=== PATIENT | female | born 1955 | race Caucasian/White ===

== ENCOUNTER 2019-09-25 13:01 | Outpatient (CLI) | payer MEDICARE, SELFPAY ==
--- NOTE | ~2019-09-25 | MR_ITS ---
EXAMINATION: MR lumbar spine wo con DATE: 09/25/2019 14:01 INDICATION: Chronic low back pain. Left leg weakness. TECHNIQUE: Magnetic resonance imaging (MRI) of the lumbar spine was performed without intravenous con trast. Sequences included sagittal T2-weighted FSE, sagittal T2-weighted FS FSE, sagittal T1-weighted FSE, and axial T2-weighted FSE. COMPARISON: Lumbar spine radiographs 03/05/2019 FINDINGS: There is 6 degrees dextrocurvature of thoracolumbar spine. There is 3 mm retrolisthesis of L1 on L2 and L2 on L3. There are Schmorl's nodes from L1-L2 through L3-L4. There is moderately decrea sed disc height from L1-L2 through L3-L4, mildly decreased disc height at L4-L5, and moderately decre ased disc height at L5-S1. The distal spinal cord signal intensity is normal. The conus medullaris is at L1. The following disc levels are specifically discussed: L1-L2: The disc is bulging and has an annular fissure. There is mild right facet joint osteoarthritis . There is mild bilateral neural foraminal stenosis. There is mild central canal stenosis. L2-L3: The disc is bulging. There is mild bilateral facet joint osteoarthritis. There is mild bilater al neural foraminal stenosis. There is mild central canal stenosis. L3-L4: The disc is bulging and has an annular fissure. There is mild bilateral facet joint osteoarthr itis. There is mild bilateral neural foraminal stenosis. There is mild central canal stenosis. L4-L5: The disc is bulging and has an annular fissure. There is mild bilateral facet joint osteoarthr itis. There is mild bilateral neural foraminal stenosis. There is mild central canal stenosis. L5-S1: The disc is bulging with superimposed left subarticular extrusion. No nerve root compression. There is severe bilateral facet joint osteoarthritis. There is mild bilateral neural foraminal stenos is. There is mild central canal stenosis. IMPRESSION: 1. Moderate lumbar spondylosis. Reviewed, dictated and finalized at location A.
== END 2019-09-25 13:02 ==
PROVIDERS: Visit Provider Nurse Practitioner Family
DX: M54.5 Low back pain (principal); M47.816 Spondylosis without myelopathy or radiculopathy, lumbar region
CPT/HCPCS: 72148

== ENCOUNTER → 2020-10-30 15:20 | Outpatient (CLI) | payer MEDICARE, SELFPAY ==
--- NOTE | ~2020-10-30 | MR_ITS ---
EXAMINATION: MR lumbar spine wo con DATE: 10/30/2020 16:08 INDICATION: Lumbar radiculopathy TECHNIQUE: Magnetic resonance imaging (MRI) of the lumbar spine was performed without intravenous con trast. Sequences included sagittal T2-weighted FSE, sagittal T2-weighted FS FSE, sagittal T1-weighted FSE, and axial T2-weighted FSE. COMPARISON: 09/25/2019 FINDINGS: No interval change in 6 degrees thoracolumbar dextrocurvature. Also unchanged is 3 mm retrolisthesis L1 on L2 and L2 on L3. Vertebral body heights are normal. Schmorl's nodes along the inferior endplate s of L1-L3.T1 hyperintense hemangiomas at T11, L1 and L2. Moderate disc height loss at L1-L2 through L3-L4. Moderate disc height loss at L5-S1 and mild disc height loss at L4-L5. The conus medullaris te rminates at L1. There is normal signal in the caudal spinal cord. Paravertebral soft tissues are unre markable. The following disc levels are specifically discussed: T12-L1: Disc is minimally bulging. There is mild bilateral facet joint osteoarthritis. There is no ne ural foraminal stenosis. There is no central canal stenosis. L1-L2: Disc is bulging with annular fissure. There is mild bilateral facet joint osteoarthritis. Ther e is mild bilateral, left greater than right neural foraminal stenosis. There is mild central canal s tenosis. L2-L3: Disc is bulging. There is mild bilateral facet joint osteoarthritis. There is mild bilateral n eural foraminal stenosis. There is mild central canal stenosis. L3-L4: Disc is bulging with annular fissure. There is mild bilateral facet joint osteoarthritis. Ther e is mild to moderate bilateral neural foraminal stenosis. There is mild central canal stenosis. L4-L5: Disc is mildly bulging with annular fissure. There is mild bilateral facet joint osteoarthriti s. There is mild bilateral neural foraminal stenosis. There is mild central canal stenosis. L5-S1: Disc is bulging with annular fissure and unchanged left subarticular zone disc extrusion. Ther e is severe bilateral facet joint osteoarthritis. There is mild right and mild to moderate left neura l foraminal stenosis. There is mild central canal stenosis. IMPRESSION: 1. No significant interval change in moderate lumbar spondylosis. Reviewed, dictated and finalized at location B.
== END ==
PROVIDERS: Visit Provider Nurse Practitioner Family
DX: M54.16 Radiculopathy, lumbar region (principal); M47.816 Spondylosis without myelopathy or radiculopathy, lumbar region
CPT/HCPCS: 72148

== ENCOUNTER 2022-05-04 14:24 | Outpatient (CLI) | payer MEDICARE, SELFPAY ==
--- NOTE | ~2022-05-04 | MR_ITS ---
EXAMINATION: MR lumbar spine wo con DATE: 05/04/2022 15:02 INDICATION: Low back pain. Scoliosis without myelopathy or radiculopathy. TECHNIQUE: Magnetic resonance imaging (MRI) of the lumbar spine was performed without intravenous con trast. Sequences included sagittal T2-weighted FSE, sagittal T2-weighted FS FSE, sagittal T1-weighted FSE, and axial T2-weighted FSE. COMPARISON: Lumbar spine MRI 10/30/2020 FINDINGS: There is 5 degrees dextrocurvature of thoracolumbar spine. There is 3 mm retrolisthesis of L1 on L2 and L2 on L3. There is mild chronic anterior wedging of L1 vertebral body. There is severely decreased disc height at L1-L2, moderately decreased disc height at L2-L3 and L3-L4, and mildly decr eased disc height at L4-L5 and L5-S1. The distal spinal cord signal intensity is normal. The conus me dullaris is at L1. The following disc levels are specifically discussed: L1-L2: The disc is bulging. There is mild bilateral facet joint osteoarthritis. There is mild left ne ural foraminal stenosis. There is mild central canal stenosis. L2-L3: The disc is bulging. There is mild bilateral facet joint osteoarthritis. There is mild bilater al neural foraminal stenosis. There is mild central canal stenosis. L3-L4: The disc is bulging. There is mild bilateral facet joint osteoarthritis. There is mild bilater al neural foraminal stenosis. There is mild central canal stenosis. L4-L5: The disc is bulging and has an annular fissure. There is severe right and mild left facet join t osteoarthritis. There is mild bilateral neural foraminal stenosis. There is mild central canal sten osis. L5-S1: There is a left subarticular zone protrusion. There is moderate bilateral facet joint osteoart hritis. There is mild bilateral neural foraminal stenosis. There is mild central canal stenosis. IMPRESSION: 1. Moderate lumbar spondylosis, stable from 10/30/2020. Reviewed, dictated and finalized at location A. [employer]
--- NOTE | ~2022-05-04 | XR_ITS ---
EXAM: XR lumbar spine min 4V DATE: 05/04/2022 15:11 HISTORY: Spondylosis without myelopathy or radiculopathy, l . COMPARISON: 03/05/2019. FINDINGS: Suture lines in the left upper quadrant. Moderate lumbar scoliosis. Osteopenia. Exaggerated lumbar lordosis. 5 nonrib-bearing lumbar-type vertebral bodies. Pedicles intact. Stable mild grade 1 retrolisthesis at L2-3 and L3-4. Vertebral body heights preserved. Multilevel moderate disc space na rrowing and marginal osteophytosis. Vacuum phenomenon at L2-3. Multilevel facet hypertrophy and scler osis. No fracture or dislocation. Mild aortic calcification without evident aneurysm. IMPRESSION: Stable grade 1 retrolistheses at L2-3 and L3-4. Stable moderate multilevel degenerative d isc disease and facet arthropathy. Reviewed, dictated and finalized at location K. L GRINDER IMPRESSION: Stable grade 1 retrolistheses at L2-3 and L3-4. Stable moderate mul tilevel degenerative disc disease and facet arthropathy.
== END 2022-05-04 14:25 ==
PROVIDERS: PCP Neurological Surgery; Visit Provider Neurological Surgery
DX: M47.816 Spondylosis without myelopathy or radiculopathy, lumbar region (principal); M51.36 Other intervertebral disc degeneration, lumbar region
CPT/HCPCS: 72110; 72148

== ENCOUNTER 2022-09-30 09:34 | Observation (INO) | payer MEDICARE, SELFPAY ==
[2022-09-30] VITALS (21 sets, daily range): BP systolic 149–172; BP diastolic 59–82; PULSE 54–78; RESP 13–21; TEMP 35.9–36.8; O2SAT 93–100; BMI 34.0
--- NOTE | 2022-09-30 09:42 | ED.GENADULT ---
HPI - General Adult General Chief complaint: Recheck/Abnormal Lab/Rx Stated complaint: drEduard sent for possible blood transfusion Time Seen by Provider: 09/30/22 09:42 Source: patient and family Mode of arrival: ambulatory Limitations: no limitations History of Present Illness HPI narrative: 66 years old white female history of systemic lupus,, fibromyalgia, rheumatoid arthritis been on meloxicam 7.5 mg twice a day for years. Complaining of general weakness, fatigue, shortness of breath for the last 5 months. Patient was seen by her family physician 3 weeks ago who ordered blood work-up to be done 2 days ago, had a phone call today to go to the emergency room because her hemoglobin is 6.8. Patient denies abdominal pain, vomiting or diarrhea or change in coloration of the stool. Related Data Home Medications Medication Instructions Recorded Confirmed hydrocodone 7.5 mg-acetaminophen 1 tablet PO Q6H PRN 05/18/19 08/24/22 325 mg tablet morphine 30 mg tablet,extended 30 mg PO Q12H 06/19/19 08/24/22 release folic acid 400 mcg tablet 0.4 mg PO DAILY 12/24/20 08/24/22 vitamin B complex (B 1 tablet PO DAILY 12/24/20 08/24/22 Complex-Vitamin B12 tablet) zinc 50 mg tablet 50 mg PO DAILY 12/24/20 08/24/22 pantoprazole 40 mg tablet,delayed 40 mg PO BID 08/24/22 08/24/22 release Allergies Allergy/AdvReac Type Severity Reaction Status Date / Time adhesive tape Allergy Unknown powell to Verified 09/30/22 10:18 skin Penicillins Allergy Unknown Swelling Verified 09/30/22 10:18 of Lip/Tongue/Throat Review of Systems Review of Systems: All systems reviewed & are unremarkable except as noted in HPI and below PMFSH Past Medical History Medical History (Updated 09/30/22 @ 12:32 by Edna Burns MD) Abdominal migraine Anemia Essential (primary) hypertension Fibromyalgia Pure hypercholesterolemia Rheumatoid arthritis with positive rheumatoid factor Screening for breast cancer Systemic lupus erythematosus, unspecified Vitamin D deficiency, unspecified Surgical History Surgical History (Updated 09/30/22 @ 12:32 by Rosita Gutierrez NP) H/O section H/O colonoscopy H/O gastric bypass Hx of cholecystectomy Family History Family History Mother Family history of chronic obstructive pulmonary disease Family history of diabetes mellitus in first degree relative Diabetes mellitus Social History Social History Smoking packs per day: 2 Smoking cigarettes per day: 40.0 Years smoked: 30 Smoking pack-years: 60.00 Smoking status: Former smoker Tobacco type: e-cigarettes/vaping Second hand tobacco smoke exposure: No Smoking end date: 03/07/09 Alcohol intake: never Substance use: never Substance use type: does not use Lack of Transportation: No Lack of Food: Never True Current Housing: I Have Housing Concerned About Future Housing: No Difficulty Paying Gas/Electric Bills: No Difficulty Paying for Meds: No Currently Unemployed: No Education: Trade/Vocational Certificate Difficulty w/ Childcare or Family Care: No Exam Narrative: General appearance: Well-developed, well-nourished Skin: Pale Head: Normocephalic, nontraumatic Eyes: Clear conjunctiva ENT: Oropharynx normal, ears normal, nose normal Neck: Supple, nontender Chest and respiratory: Airway patent, no respiratory distress, no accessory muscle use Heart: Regular rate/rhythm Abdomen: Soft, nontender, no organomegaly, quiet bowel sounds, rectal exam showed yellow stool, guaiac negative Vascular: Normal peripheral pulses, normal capillary refill. Musculoskeletal: Normal range of motion, nontender back Neurologic: Alert and oriented ?3, [employer] is normal as tested, no gross motor deficit
[2022-09-30 10:14] LABS: Basophils Absolute Auto 0.1 K/mm3 (0.0-0.1); Basophils Percent Auto 1.4 % (0.2-1.2); Eosinophils Absolute Auto 0.2 K/mm3 (0-0.3); Eosinophils Percent Auto 6.4 % (0-4.4); Hematocrit 25.6 % (37.0-47.0); Hemoglobin 7.3 g/dL (12.0-15.0); Immature Granulocyte Absolute 0.01 K/mm3 (0.00-0.031); Immature Granulocyte Percent A 0.3 % (0-0.5); Lymphocytes Absolute Auto 0.56 K/mm3 (0.9-3.2); Lymphocytes Percent Auto 15.6 % (18.3-44.2); Mean Corpuscular HGB Conc 28.5 g/dl (32-36); Mean Corpuscular Hemoglobin 18.5 pg (26-34); Mean Corpuscular Volume 64.8 fl (80-100); Mean Platelet Volume 9.2 fl (7.4-10.4); Monocytes Absolute Auto 0.4 K/mm3 (0.1-0.6); Neutrophils Absolute Auto 2.3 K/mm3 (1.3-6.7); Neutrophils Percent Auto 64.3 % (45.5-73.1); Platelet Count Result 337 k/mm3 (150-375); Red Blood Count 3.95 M/mm3 (4.2-5.4); White Blood Count 3.6 K/mm3 (4.5-10.0)
[2022-09-30 10:24] LABS: Alanine Aminotransferase 16 U/L (6-35); Albumin Level 3.9 g/dL (3.5-5.1); Alkaline Phosphatase 59 U/L (38-126); Anion Gap 9 mmol/L (8-16); Aspartate Amino Transferase 35 U/L (14-36); Bilirubin,Total 0.3 mg/dL (0.2-1.3); Blood Urea Nitrogen 6 mg/dL (7-17); Calcium 8.4 mg/dL (8.4-10.2); Carbon Dioxide 25 mmol/L (22-30); Chloride 95 mmol/L (98-107); Estimated CRCL calculation 65 ml/min; Estimated Glomerular Filt Rate > 60; Glucose 97 mg/dL (65-110); Sodium 129 mmol/L (137-145)
[2022-09-30 10:26] LABS: Prothrombin Time 13.4 Seconds (11.1-14.7)
[2022-09-30] MEDS: PANTOPRAZOLE SODIUM IV 40 MG VIAL IV PUSH ×2 (10:26→16:30)
[2022-09-30 10:27] LABS: Partial Thromboplastin Time 29.4 SECONDS (22.3-36.8)
[2022-09-30 10:33] LABS: Anisocytosis 2+ (NORMAL); Hypochromasia 2+ (NORMAL); Microcytosis 2+ (NORMAL); Ovalocytes 1+ (NORMAL); Platelet Estimate Adequate (Adequate)
[2022-09-30 10:34] LABS: Schistocytes None Seen (NORMAL)
--- NOTE | 2022-09-30 12:00 | PC.NURSE ---
Per Dr. Burns, patient to not receive blood products at this time d/t hemoglobin improving since drawn 2 day ago. CEDRIC Manrique and [facility] Isela, blood bank, made aware.
--- NOTE | 2022-09-30 12:28 | PM.IMHP ---
H&P: HPI History of Present Illness Date/Time: 09/30/22 12:28 Chief Complaint: Abnormal lab Narrative: This is a 66-year-old female patient who has a history of systemic lupus, rheumatoid arthritis and fibromyalgia. The patient has been short of breath with exertion and fatigue. She has a history of gastric bypass and has had her B12 checked in the past and was found that it was high. The patient stated that her iron levels were low old she stated that they were down to 5% at 1 time. She has also been having some dysphagia where she is having difficulty swallowing and feels that things are getting stuck in her throat. The patient also has been complaining of burning tongue and throat. She was started on what sounds like nystatin and was not able to tolerated. She has been taking meloxicam and hydro chloroquine for her RA and and her lupus. She stated that back in 2018 her blood counts were normal. The patient was seen by her primary care doctor approximately 3 weeks ago and lab work was ordered 2 days ago. The patient had a phone call today to tell her to come to the emergency room because her hemoglobin was 6.8. The patient denies any hematemesis or hematochezia. The patient stated that she has not been able to take her vitamins because of her burning tongue and throat. She has difficulty swallowing. On 09/28/2022 her H&H was 6.824.3. Her H&H is now 7.3 and 25.6. Which is comparable to her labs on 09/16/2022. Her sodium is low 129. Chloride 95. Her vitamin B12 was 1730 on 09/28/2022 her vitamin-D was low at 29.6 on 09/16/2022 her iron level was 15 2 days ago saturation is 3. TIBC is 454 unsaturated IBC is 439. Ferritin is 5. And iron infusion has been ordered for the patient. GI has been consulted. The patient stated that she has had a full anemia panel workup in the past. She denies any chest pain. The patient is being admitted to observation status on 09/30/2022. Review of Systems Review of Systems: All systems reviewed & are unremarkable except as noted in HPI and below Constitutional: Constitutional: Reports as per HPI and Reports no additional constitutional complaints Eyes: Eyes: Reports as per HPI and Reports no additional eye complaints ENT: Reports system reviewed and no additional complaints, except as documented and Reports Normal hearing present Cardiovascular: Cardiovascular: Reports no additional cardiovascular complaints Respiratory: Respiratory: Reports no additional respiratory complaints and Reports no additional respiratory complaints Gastrointestinal: Gastrointestinal: Reports as per HPI and Reports no additional gastrointestinal complaints Musculoskeletal: Musculoskeletal: Reports no additional musculoskeletal complaints Integumentary/Breasts: Skin/Breast: Reports system reviewed and no additional complaints, except as docu and Reports as per HPI Neurologic: Reports system reviewed and no additional complaints, except as documented, Reports as per HPI and Reports Normal hearing present Psychiatric: Psychiatric: Reports no additional psychiatric complaints and Reports as per HPI Endocrine: Endocrine: Reports no additional endocrine complaints Hematologic/Lymphatic: Hematologic/Lymphatic: Reports no additional hematologic/lymphatic complaints Allergic/Immunologic: Allergic/Immunologic: Reports no additional allergic/immunologic complaints [facility] Past Medical History Medical History (Updated 09/30/22 @ 15:43 by Rosita Gutierrez NP) Abdominal migraine Anemia Chronic prescription opiate use CVA (cerebral vascular accident) Essential (primary) hypertension Fibromyalgia History of endometriosis Iron deficiency anemia Pure hypercholesterolemia Rheumatoid arthritis with positive rheumatoid factor Screening for breast cancer Systemic lupus erythematosus, unspecified Vitamin D deficiency, unspecified Surgical History Surgical History (Updated 09/30/22 @ 15:33 by Rosita Gutierrez NP) H/O ce
--- NOTE | 2022-09-30 13:15 | ADMGEN ---
This patient, Krissy Oro, was admitted to [facility] Surg Room 331-01. Patient/family oriented to hospital policies and general routines including ID bracelet, bed and alarms, visiting hours, pain management, procedures, bathroom and other care routines, personal items, smoking policy, room service/diet, and visiting hours. Information on how to activate the Rapid Response Team has been discussed. Patient/Family are encouraged to report perceived risks to care and to ask questions if they do not understand what they are told or what they should do.
--- NOTE | 2022-09-30 15:25 | PC.NURSE ---
Addendum entered by Soraida Romero RN 09/30/22 17:50: Iron infusion finished. Pt tolerated well. Pt denies pain and expresses no needs at this time. Will continue to monitor pt. Original Note: Pt has Iron infusion ordered at 1236 while down in ED. Pt did not receive infusion before being sent up. Will infuse when pharmacy sends up.
[2022-09-30] MEDS: IRON SUCROSE COMPLEX 200 MG in SODIUM CHLORIDE 0.9% IV 50 ML 120 MG IVPB (16:27)
[2022-09-30] MEDS: HYDROXYCHLOROQUINE SULFATE 200 MG TABLET PO (16:28)
[2022-09-30] MEDS: GABAPENTIN 300 MG CAPSULE 600 MG PO (16:28)
[2022-09-30] MEDS: atenoloL 50 MG TABLET PO (16:28)
[2022-09-30 18:16] LABS: Hematocrit 23.6 % (37.0-47.0)
[2022-09-30 18:24] LABS: Hemoglobin 6.8 g/dL (12.0-15.0)
[2022-09-30 18:26] LABS: Anion Gap 5 mmol/L (8-16); Blood Urea Nitrogen 6 mg/dL (7-17); Calcium 8.3 mg/dL (8.4-10.2); Carbon Dioxide 27 mmol/L (22-30); Chloride 95 mmol/L (98-107); Estimated CRCL calculation 74 ml/min; Estimated Glomerular Filt Rate > 60; Glucose 126 mg/dL (65-110); Sodium 127 mmol/L (137-145)
--- NOTE | 2022-09-30 19:19 | PC.NURSE ---
Pt hgb came back at 6.8. Provider notified, 1 unit of PRBC ordered for pt. Consent was signed. Pt vitals taken. Attempted to get new IV due to IV that was placed in ED is in L AC and keeps alarming while infusing. No new IV obtained at this time. Pt tolerating well. Will stay with pt for first 15 minutes and repeat vitals. Bowel prep will be started when miralax is sent to the floor. Will continue to monitor pt. Oncoming nurse cosigned blood administration.
[2022-09-30] MEDS: SODIUM CHLORIDE 0.9% IV 250 ML 30 ML IV CONT (19:27)
[2022-09-30] MEDS: polyethylene glycoL 3350 238 GM BOTTLE PO (19:35)
[2022-09-30] MEDS: BISACODYL 5 MG TABLET EC 20 MG PO (19:36)
[2022-09-30] MEDS: MORPHINE SULFATE (*CRX) 30 MG TABCR PO (20:25)
--- NOTE | 2022-09-30 22:35 | PC.NURSE ---
Patient c/o feeling light headed and having a hot flash. Glucose level checked at this time with the results of 62. Notified Rosita Gutierrez. New orders received for one time amp of D50 and redraw H&H at 2255.
[2022-09-30] MEDS: DEXTROSE 50% 25 GM/50 ML SYRINGE IV PUSH (22:39)
[2022-09-30 22:42] LABS: Glucose Point of Care 62 mg/dl (65-105)
[2022-09-30 23:11] LABS: Glucose Point of Care 212 mg/dl (65-105)
[2022-09-30 23:51] LABS: Hematocrit 24.5 % (37.0-47.0); Hemoglobin 7.4 g/dL (12.0-15.0)
[2022-10-01] VITALS (7 sets, daily range): BP systolic 115–157; BP diastolic 46–97; PULSE 60–82; RESP 14–20; TEMP 35.9–36.4; O2SAT 98–100
[2022-10-01 02:17] LABS: Anion Gap 10 mmol/L (8-16); Blood Urea Nitrogen 5 mg/dL (7-17); Calcium 7.9 mg/dL (8.4-10.2); Carbon Dioxide 21 mmol/L (22-30); Chloride 93 mmol/L (98-107); Estimated CRCL calculation 74 ml/min; Estimated Glomerular Filt Rate > 60; Glucose 144 mg/dL (65-110); Potassium 3.1 mmol/L (3.4-5.0); Sodium 124 mmol/L (137-145)
[2022-10-01] MEDS: HYDROcodone/acetaminophen (*CRX) 7.5-325 MG TABLET 1 TAB PO ×2 (04:33→15:30)
[2022-10-01 06:42] LABS: Basophils Percent Auto 0.7 % (0.2-1.2); Eosinophils Absolute Auto 0.2 K/mm3 (0-0.3); Eosinophils Percent Auto 4.4 % (0-4.4); Hematocrit 25.8 % (37.0-47.0); Hemoglobin 7.4 g/dL (12.0-15.0); Lymphocytes Absolute Auto 0.66 K/mm3 (0.9-3.2); Lymphocytes Percent Auto 15.4 % (18.3-44.2); Mean Corpuscular HGB Conc 28.7 g/dl (32-36); Mean Corpuscular Hemoglobin 19.4 pg (26-34); Mean Corpuscular Volume 67.7 fl (80-100); Mean Platelet Volume 9.4 fl (7.4-10.4); Monocytes Absolute Auto 0.6 K/mm3 (0.1-0.6); Neutrophils Absolute Auto 2.8 K/mm3 (1.3-6.7); Neutrophils Percent Auto 65.5 % (45.5-73.1); Platelet Count Result 265 k/mm3 (150-375); Red Blood Count 3.81 M/mm3 (4.2-5.4); Red Cell Distribution Width 21.2 % (11.5-14.5); White Blood Count 4.3 K/mm3 (4.5-10.0)
[2022-10-01 06:56] LABS: Alanine Aminotransferase 17 U/L (6-35); Albumin Level 3.4 g/dL (3.5-5.1); Alkaline Phosphatase 56 U/L (38-126); Anion Gap 6 mmol/L (8-16); Aspartate Amino Transferase 31 U/L (14-36); Bilirubin,Total 0.5 mg/dL (0.2-1.3); Blood Urea Nitrogen 5 mg/dL (7-17); Calcium 8.2 mg/dL (8.4-10.2); Carbon Dioxide 24 mmol/L (22-30); Chloride 96 mmol/L (98-107); Estimated CRCL calculation 74 ml/min; Estimated Glomerular Filt Rate > 60; Glucose 92 mg/dL (65-110); Magnesium 1.7 mg/dL (1.6-2.3); Potassium 4.2 mmol/L (3.4-5.0); Sodium 126 mmol/L (137-145)
[2022-10-01 07:43] LABS: Platelet Estimate Adequate (Adequate)
[2022-10-01 07:44] LABS: Anisocytosis 2+ (NORMAL); Hypochromasia 1+ (NORMAL); Microcytosis 1+ (NORMAL); Ovalocytes 1+ (NORMAL); Schistocytes None Seen (NORMAL)
[2022-10-01] MEDS: MORPHINE SULFATE (*CRX) 30 MG TABCR PO (09:24)
[2022-10-01] MEDS: GABAPENTIN 300 MG CAPSULE 600 MG PO (09:24)
[2022-10-01] MEDS: HYDROXYCHLOROQUINE SULFATE 200 MG TABLET PO (09:24)
[2022-10-01] MEDS: atenoloL 50 MG TABLET PO (09:24)
[2022-10-01] MEDS: LACTATED RINGERS 1,000 ML 150 ML IV CONT (10:41)
--- NOTE | 2022-10-01 11:05 | WPDANESEPPF ---
Anes - Initial Pre Proc Eval Procedure: Operation Date: 10/01/22 12:30 Proposed Procedures p Esophagogastroduodenoscopy & Colonoscopy - Jamir Graham MD Date/Time: 10/01/22 11:05 Surgeon: Luis Eduardo Sierra MD Pre Op Diagnosis: Anemia Patient Data Age: 66 Gender: F Height: 1.7 m Weight: 98.4 kg Last Vital Signs Temp 97.4 F L 10/01/22 10:38 Pulse 82 10/01/22 10:38 Resp 20 10/01/22 10:38 BP 149/97 H 10/01/22 10:38 Pulse Ox 98 10/01/22 10:38 O2 Del Method Room Air 10/01/22 10:38 Allergies Allergy/AdvReac Type Severity Reaction Status Date / Time adhesive tape Allergy Unknown powell to Verified 10/01/22 10:35 skin Penicillins Allergy Unknown Swelling Verified 10/01/22 10:35 of Lip/Tongue/Throat Home Medications Medication Instructions Recorded Confirmed Type hydrocodone 7.5 mg-acetaminophen 1 tablet PO BID PRN Pain, Severe 05/18/19 09/30/22 History 325 mg tablet morphine 30 mg tablet,extended 30 mg PO Q12H 06/19/19 09/30/22 History release gabapentin 600 mg tablet 600 mg PO BID #180 tabs 07/30/22 09/30/22 Rx pantoprazole 40 mg tablet,delayed 40 mg PO BID 08/24/22 09/30/22 History release atenolol 50 mg tablet 50 mg PO BID 09/30/22 09/30/22 History cyclobenzaprine 10 mg tablet 10 mg PO HS PRN Muscle Spasm 09/30/22 09/30/22 History hydroxychloroquine 200 mg tablet 200 mg PO BID 09/30/22 09/30/22 History meloxicam 7.5 mg tablet 7.5 mg PO BID PRN Pain, Mild 09/30/22 09/30/22 History Laboratory Tests 09/30/22 09/30/22 09/30/22 10:07 18:05 22:32 WBC RBC Hgb 6.8 L* g/dL (12.0-15.0) Hct 23.6 L % (37.0-47.0) MCV MCH MCHC RDW Plt Count MPV Immature Gran % (Auto) Neut % (Auto) Lymph % (Auto) [place] % (Auto) Eos % (Auto) Baso % (Auto) Lymph # (Auto) [place] # (Auto) Eos # (Auto) Baso # (Auto) Abs Immat Gran (auto) Absolute Neuts (auto) Absolute Nucleated RBC Nucleated RBC % Platelet Estimate Hypochromasia Anisocytosis Microcytosis Ovalocytes Schistocytes Sodium 127 L mmol/L (137-145) Potassium 5.0 mmol/L (3.4-5.0) Chloride 95 L mmol/L (98-107) Carbon Dioxide 27 mmol/L (22-30) Anion Gap 5 L mmol/L (8-16) BUN 6 L mg/dL (7-17) Creatinine 0.80 mg/dL (0.7-1.0) Estim Creat Clear Calc 74 ml/min Estimated GFR > 60 (59 - ) Glucose 126 H mg/dL (65-110) POC Capillary Glucose 62 L mg/dl (65-105) Calcium 8.3 L mg/dL (8.4-10.2) Magnesium Total Bilirubin AST ALT Alkaline Phosphatase Total Protein Albumin TSH (Reflex) Blood Type O Positive Antibody Screen Negative Crossmatch See Detail 09/30/22 09/30/22 09/30/22 23:08 23:18 23:26 WBC RBC Hgb 7.4 L g/dL (12.0-15.0) Hct 24.5 L % (37.0-47.0) MCV MCH MCHC RDW Plt Count MPV Immature Gran % (Auto) Neut % (Auto) Lymph % (Auto) [place] % (Auto) Eos % (Auto) Baso % (Auto) Lymph # (Auto) [place] # (Auto) Eos # (Auto) Baso # (Auto) Abs Immat Gran (auto) Absolute Neuts (auto) Absolute Nucleated RBC Nucleated RBC % Platelet Estimate Hypochromasia Anisocytosis
--- NOTE | 2022-10-01 11:21 | WPDGICN ---
Assessment and Plan Assessment and plan (1) Iron deficiency anemia: Code(s): D50.9 - Iron deficiency anemia, unspecified Status: Acute Assessment and Plan: will proceed with egd and colonoscopy today assess if gi blood loss, denies overt gib she is taking nsaid's, recently with dysphagia, also h/o SLE also could be from previous gastric surgery (2) Dysphagia: Code(s): R13.10 - Dysphagia, unspecified Status: Acute Assessment and Plan: egd to assess if stricture, esophagitis, etc she is using ppi daily (3) Hyponatremia: Code(s): E87.1 - Hypo-osmolality and hyponatremia Status: Acute Assessment and Plan: monitor (4) Systemic lupus erythematosus, unspecified: Qualifiers: Systemic lupus erythematosus type: unspecified Systemic lupus erythematosus organ involvement: unspecified Qualified Code(s): M32.9 - Systemic lupus erythematosus, unspecified Code(s): M32.9 - Systemic lupus erythematosus, unspecified Status: Acute Assessment and Plan: on plaquenil (5) Fibromyalgia: Code(s): M79.7 - Fibromyalgia Status: Acute (6) Chronic pain disorder: Code(s): G89.4 - Chronic pain syndrome Status: Acute (7) NSAID long-term use: Code(s): Z79.1 - supervisor intermediates (current) use of non-steroidal anti-inflammatories (NSAID) Status: Acute GI Consult Note Consult date/time: 10/01/22 11:21 Reason for consult: HANNA HPI: Krissy Oro is a 66 year old female with history of systemic lupus (fatigue and joint discomfort) on plaquenil for 10 years, fibromyalgia and chronic pain syndrome using morphine daily, also meloxicam at least for 5 years.?She has a history of gastric bypass. Lately noted some dysphagia, feels that things are getting stuck in her throat.? Lately with more fatigue than usual and shortness of breath on exertion.?She went to see her PCP and ordered blood work, found to have anemia with hemoglobin was 6.8.? The patient denies any hematemesis or hematochezia, no overt gib.?Sodium is low 129.?vitamin B12 was 1730, TIBC is 454, ferriting 5 and microcytosis. Platelets normal, bun 5, creat 0.8. Never had EGD but she takes ppi daily, last colonoscopy at early 50's Review of Systems Constitutional: Constitutional: Reports fatigue and Reports lethargy Eyes: Eyes: Denies blurry vision ENT: Reports Normal hearing present Cardiovascular: Cardiovascular: Denies chest pain Respiratory: Respiratory: Reports dyspnea on exertion Gastrointestinal: Gastrointestinal: Denies abdominal pain and Reports heartburn Comments: dysphagia Genitourinary: Genitourinary: Denies urinary urgency Musculoskeletal: Musculoskeletal: Reports arthralgias Integumentary/Breasts: Skin/Breast: Denies rash Neurologic: Denies confusion Psychiatric: Psychiatric: Denies homicidal ideation [facility] Past Medical History Medical History (Updated 10/01/22 @ 11:27 by Jamir Graham MD) Abdominal migraine Anemia Chronic pain disorder Chronic prescription opiate use CVA (cerebral vascular accident) Dysphagia Essential (primary) hypertension Fibromyalgia History of endometriosis Iron deficiency anemia NSAID long-term use Pure hypercholesterolemia Rheumatoid arthritis with positive rheumatoid factor Screening for breast cancer Systemic lupus erythematosus, unspecified Vitamin D deficiency, unspecified Surgical History Surgical History (Updated 09/30/22 @ 15:33 by Rosita Gutierrez NP) H/O section H/O colonoscopy H/O gastric bypass History of appendectomy Hx of cholecystectomy Family History Family History Mother Family history of chronic obstructive pulmonary disease Family history of diabetes mellitus in first degree relative Diabetes mellitus Social History Social History (Updated 09/30/22 @ 15:35 by Rosita Gutierrez NP) Social His
--- NOTE | 2022-10-01 11:39 | SUR.OPER ---
EGD START: 1131; END: 1134. COLONOSCOPY START: 1139; END: 1200.
--- NOTE | 2022-10-01 11:41 | PM.IMPN ---
Progress Note: A&P Assessment and Plan (1) Iron deficiency anemia: Code(s): D50.9 - Iron deficiency anemia, unspecified Status: Acute Assessment and Plan: The patient has a history of a gastric bypass and has not been taking her oral medication due to her difficulty swallowing. The patient was given IV iron today. She has been feeling weak and fatigued and short of breath with exertion. The patient was ordered 2 units of packed red blood cells from the emergency room. GI has been consulted. Check H&H every 6 hours. Check stool for occult blood. Continue with IV pantoprazole. Hold meloxicam. The patient is also on methotrexate which can cause some anemia as well. The methotrexate can cause pancytopenia. Could also cause fatigue and malaise. It could also cause some stomatitis. It can also cause some ulcerative stomatitis. (2) Chronic prescription opiate use: Code(s): Z79.891 - [employer] (current) use of opiate analgesic Status: Acute Assessment and Plan: Continue with her home prescription she is on extended release morphine and p.r.n. Vicodin. Hold meloxicam (3) Hyponatremia: Code(s): E87.1 - Hypo-osmolality and hyponatremia Status: Acute Assessment and Plan: Continue with IV fluid and recheck BMP. The patient has poor oral intake. The patient is not on any diuretics. (4) Fibromyalgia: Code(s): M79.7 - Fibromyalgia Status: Acute Assessment and Plan: Continue with home pain medications and cyclobenzaprine. Continue with gabapentin (5) Vitamin D deficiency, unspecified: Code(s): E55.9 - Vitamin D deficiency, unspecified Status: Acute Assessment and Plan: The patient stated that she has not been able to take her vitamin due to her dysphagia. (6) Systemic lupus erythematosus, unspecified: Qualifiers: Systemic lupus erythematosus type: unspecified Systemic lupus erythematosus organ involvement: unspecified Qualified Code(s): M32.9 - Systemic lupus erythematosus, unspecified Code(s): M32.9 - Systemic lupus erythematosus, unspecified Status: Acute Assessment and Plan: Continue with methotrexate. Continue with current pain management (7) Pure hypercholesterolemia: Code(s): E78.00 - Pure hypercholesterolemia, unspecified Status: Acute Assessment and Plan: Continue with home medication. (8) Rheumatoid arthritis with positive rheumatoid factor: Qualifiers: Rheumatoid arthritis location: unspecified site Qualified Code(s): M05.9 - Rheumatoid arthritis with rheumatoid factor, unspecified Code(s): M05.9 - Rheumatoid arthritis with rheumatoid factor, unspecified Status: Acute Assessment and Plan: Continue with methotrexate. (9) Essential (primary) hypertension: Code(s): I10 - Essential (primary) hypertension Status: Acute Assessment and Plan: Continue with atenolol (10) Dysphasia: Code(s): R47.02 - Dysphasia Status: Acute Assessment and Plan: IV pantoprazole and GI has been consulted. Subjective Date/time seen: 10/01/22 11:41 Interval history: No complaints Exam Const: General: cooperative, comfortable, no acute distress, alert, awake, Physically active, ill appearing, tired appearing, average body habitus and well nourished Nutritional Appearance: average body habitus and well nourished Orientation/consciousness: oriented to person, oriented to place, oriented to time and patient oriented x3 Limitations: no limitations Other: She is pale HENMT: Head: normal to inspection, No palpable skull fracture present, normocephalic, atraumatic and abrasion Ears: hearing grossly normal bilaterally and external ears normal Face/Nose/Sinus: Normal external nose present and Normal nares present Eyes: General: appearance normal, both eyes and all related structures Alignment and Position: alignment tavares
--- NOTE | 2022-10-01 12:13 | ECG_ITS ---
Measurements Intervals [place] Rate: 63 P: 20 ME: 160 QRS: 6 QRSD: 141 T: 67 QT: 466 QTc: 479 Interpretive Statements SINUS RHYTHM LEFT BUNDLE BRANCH BLOCK BASELINE ARTIFACT- I, II, III, AVR, AVL, AVF ABNORMAL ECG NO PREVIOUS ECG AVAILABLE FOR COMPARISON Electronically Signed On 10-01-2022 19:46:37 CDT by Eric Dawson D.O.
--- NOTE | 2022-10-01 12:26 | SUR.PHASEII ---
NELSY Arenas CRNA SPOKE WITH DR DAVIS REGARDING PT'S BUNDLE BRANCH BLOCK, EKG 12 LEAD ORDERED AND COMPLETED, DR DAVIS GIVEN RESULTS, FLOOR NURSE MADE AWARE AND PT TRANSFERRED TO HER ROOM.
[2022-10-01 13:27] LABS: Troponin I < 0.012 ng/mL (0.000-0.034)
--- NOTE | 2022-10-01 16:31 | PM.DS ---
DS: Admitting Diagnosis Discharge Date 10/01/22 Admitting Diagnosis anemia DS: Discharge Diagnosis Discharge Diagnosis (1) Iron deficiency anemia: Code(s): D50.9 - Iron deficiency anemia, unspecified Status: Acute Assessment and Plan: The patient has a history of a gastric bypass and has not been taking her oral medication due to her difficulty swallowing. The patient was given IV iron today. She has been feeling weak and fatigued and short of breath with exertion. The patient was ordered 2 units of packed red blood cells from the emergency room. GI has been consulted. Check H&H every 6 hours. Check stool for occult blood. Continue with IV pantoprazole. Hold meloxicam. The patient is also on methotrexate which can cause some anemia as well. The methotrexate can cause pancytopenia. Could also cause fatigue and malaise. It could also cause some stomatitis. It can also cause some ulcerative stomatitis. (2) Chronic prescription opiate use: Code(s): Z79.891 - [facility] (current) use of opiate analgesic Status: Acute Assessment and Plan: Continue with her home prescription she is on extended release morphine and p.r.n. Vicodin. Hold meloxicam (3) Hyponatremia: Code(s): E87.1 - Hypo-osmolality and hyponatremia Status: Acute Assessment and Plan: Continue with IV fluid and recheck BMP. The patient has poor oral intake. The patient is not on any diuretics. (4) Fibromyalgia: Code(s): M79.7 - Fibromyalgia Status: Acute Assessment and Plan: Continue with home pain medications and cyclobenzaprine. Continue with gabapentin (5) Vitamin D deficiency, unspecified: Code(s): E55.9 - Vitamin D deficiency, unspecified Status: Acute Assessment and Plan: The patient stated that she has not been able to take her vitamin due to her dysphagia. (6) Systemic lupus erythematosus, unspecified: Qualifiers: Systemic lupus erythematosus type: unspecified Systemic lupus erythematosus organ involvement: unspecified Qualified Code(s): M32.9 - Systemic lupus erythematosus, unspecified Code(s): M32.9 - Systemic lupus erythematosus, unspecified Status: Acute Assessment and Plan: Continue with methotrexate. Continue with current pain management (7) Pure hypercholesterolemia: Code(s): E78.00 - Pure hypercholesterolemia, unspecified Status: Acute Assessment and Plan: Continue with home medication. (8) Rheumatoid arthritis with positive rheumatoid factor: Qualifiers: Rheumatoid arthritis location: unspecified site Qualified Code(s): M05.9 - Rheumatoid arthritis with rheumatoid factor, unspecified Code(s): M05.9 - Rheumatoid arthritis with rheumatoid factor, unspecified Status: Acute Assessment and Plan: Continue with methotrexate. (9) Essential (primary) hypertension: Code(s): I10 - Essential (primary) hypertension Status: Acute Assessment and Plan: Continue with atenolol (10) Dysphasia: Code(s): R47.02 - Dysphasia Status: Acute Assessment and Plan: IV pantoprazole and GI has been consulted. DS: Summary Hospital Course Hospital Course: admitted for anemia - gi kapoor negative - egd and colonoscopy negative, fu gi as needed fu pcp as well Time Spent with Patient Time attestation: Total time spent providing and/or coordinating discharge services: Exam Const: General: cooperative, comfortable, no acute distress, alert, awake, Physically active, ill appearing, tired appearing, average body habitus and well nourished Nutritional Appearance: average body habitus and well nourished Orientation/consciousness: oriented to person, oriented to place, oriented to time and patient oriented x3 Limitations: no limitations Other: She is pale HENMT: Head: normal to inspection, No palpable skull fracture present, normocephalic, atraumati
[2022-10-01 17:02] LABS: Troponin I < 0.012 ng/mL (0.000-0.034)
--- NOTE | 2022-10-01 19:25 | PC.NURSE ---
Pt had EGD and colonoscopy today. Pt had biopsies taken and polyps removed. Left bundle branch discovered while on telemetry during procedure. Pt had troponins drawn, both came back WNL. Pt was discharged home. Pt was monitored for any changes in status while here. Pt received 1 unit of blood during this admission. Pt tolerated well. Pt tolerated bowel prep well.
== END 2022-10-01 17:25 | disposition home or self-care (01) ==
LOC: ANHED 12:32 → ANH3MEDSUR 13:07
PROVIDERS: Internal Medicine Gastroenterology; Nurse Practitioner; Admitting Provider Chiropractor; Emergency Provider Emergency Medicine; PCP Family Medicine; Visit Provider Chiropractor
PROC: 0DJ08ZZ Inspection of Upper Intestinal Tract, Via Natural or Artificial Opening Endoscopic (ICD-10-PCS; CPT 43235; principal; 2022-10-01 12:30)
DX: K31.89 Other diseases of stomach and duodenum (principal); D50.9 Iron deficiency anemia, unspecified; K62.1 Rectal polyp; Z98.84 Bariatric surgery status; M32.9 Systemic lupus erythematosus, unspecified; M79.7 Fibromyalgia; G43.D0 Abdominal migraine, not intractable; M05.9 Rheumatoid arthritis with rheumatoid factor, unspecified; D64.9 Anemia, unspecified; I10 Essential (primary) hypertension; R13.10 Dysphagia, unspecified; E78.00 Pure hypercholesterolemia, unspecified; R47.02 Dysphasia; E87.1 Hypo-osmolality and hyponatremia; R53.1 Weakness; E66.9 Obesity, unspecified; Z68.34 Body mass index [BMI] 34.0-34.9, adult; E55.9 Vitamin D deficiency, unspecified; R53.83 Other fatigue; Z87.891 Personal history of nicotine dependence; R06.02 Shortness of breath; Z79.899 Other long term (current) drug therapy; Z79.891 Long term (current) use of opiate analgesic
CPT/HCPCS: 43239; 45385; 36415; 36430; 80048; 80053; 82948; 83735; 84443; 84484; 85014; 85018; 85025; 85610; 85730; 86850; 86900; 86901; 86923; 88305; 93005; 96365; 96375; 99285; A9270; C9113; G0378; J1756; J2001; J2704; J7050; J7120; P9016

== ENCOUNTER 2024-02-08 15:00 | Outpatient (CLI) | payer MEDICARE, SELFPAY ==
--- NOTE | ~2024-02-08 | XR_ITS ---
XR shoulder RT min 2V Ordering provider: Daphne Lisa, DIRECTOR OF PSYCHIATRY-C History: . SHOULDER PAIN . Comparison: None FINDINGS: BONES: No acute fracture or dislocation. JOINT SPACES: The acromioclavicular joint is normal. The glenohumeral joint is normal. SOFT TISSUES: Normal. IMPRESSION: No acute osseous abnormality right shoulder. Reviewed, dictated and finalized at location A. [facility]
== END 2024-02-08 15:01 | disposition home or self-care (01) ==
LOC: MICIMG 15:01
PROVIDERS: PCP Nurse Practitioner Family; Visit Provider Nurse Practitioner Family
DX: M25.511 Pain in right shoulder (principal)
CPT/HCPCS: 73030